=== PATIENT | female | born 1995 | race Caucasian/White ===

== ENCOUNTER 2016-11-07 15:09 | Emergency (ER) | payer MEDICAID, OTHER ==
[2016-11-07] MEDS ORDERED: predniSONE 20 MG TABLET PO STA (15:59)
[2016-11-07] MEDS ORDERED: predniSONE 20 MG TABLET ONE (16:02)
== END 2016-11-07 16:06 | disposition home or self-care (01) ==
DX: R07.89 Other chest pain (principal); J45.909 Unspecified asthma, uncomplicated
CPT/HCPCS: 99283; J7512

== ENCOUNTER 2017-12-19 10:29 | Emergency (ER) | payer MEDICAID ==
[2017-12-19 10:47] VITALS: BP 140/95
[2017-12-19 12:10] LABS: BILIRUBIN,URINE NEGATIVE (NEGATIVE); GLUCOSE, URINE (UA) NEGATIVE (NEGATIVE); KETONES,URINE (UA) NEGATIVE (NEGATIVE); LEUKOCYTE ESTERASE, URINE NEGATIVE (NEGATIVE); NITRITE,URINE POSITIVE (NEGATIVE); OCCULT BLOOD,URINE NEGATIVE (NEGATIVE); PH,URINE 5.5 PH (5.0-7.5); PROTEIN,URINE NEGATIVE (NEGATIVE); UROBILINOGEN,URINE 0.2 (NORMAL) E.U./dL (NORMAL)
[2017-12-19 12:13] LABS: CLARITY,URINE CLEAR (CLEAR); HCG UR QUAL POSITIVE
--- NOTE | 2017-12-19 12:26 | ED Physician Documentation ---
History of Present Illness - Stated complaint Stated Complaint: FEMALE /POSS. PREG - Chief complaint Chief Complaint: General - History obtained from History obtained from: Patient, Family - History of Present Illness Timing: Today - Additonal information Additional information: 22-year-old female has taken a test and is found that it is positive. She is here now wondering if she can get a blood test to confirm this.She is not having other symptoms except for tenderness to her nipples. She has a decreased appetite. She has a Review of Systems Constitutional: reports: Fatigue. denies: Fever, Chills, Myalgias Eyes: denies: Decreased vision Ears: denies: Ear pain Nose: denies: Congestion Throat: denies: Sore throat Cardiac: denies: Chest pain / pressure, Palpitations Respiratory: denies: Dyspnea, Cough GI: reports: Nausea. denies: Abdominal Pain, Vomiting : denies: Dysuria, Frequency PD PAST MEDICAL HISTORY - Past Medical History Respiratory: Asthma Psych: Depression, Anxiety - Past Surgical History Past Surgical History: Yes General: Appendectomy - Present Medications Home Medications: Ambulatory Orders Medication Instructions Recorded Confirmed Albuterol Sulfate [Proair Hfa 2 puffs INH Q4H PRN #1 inhaler 11/07/16 Inhaler] Control Pill 1 tab ORAL DAILY 11/07/16 11/07/16 cloNIDine HCl [Clonidine HCl] 0.2 tab ORAL DAILY PRN 11/07/16 11/07/16 predniSONE [Deltasone] 60 mg PO DAILY 4 Days tablet 11/07/16 - Allergies Allergies/Adverse Reactions: Allergies Allergy/AdvReac Type Severity Reaction Status Date / Time bacitracin AdvReac Unknown Rash Verified 11/07/16 15:16 [From Neosporin ([id number])] bacitracin zinc * AdvReac Unknown Rash Verified 11/07/16 15:16 [From Neosporin ([id number]-[id number]-[id number])] fluticasone propionate * AdvReac Unknown Respiratory Verified 11/07/16 15:16 [From Flovent Diskus] neomycin sulfate * AdvReac Unknown Rash Verified 11/07/16 15:16 [From Neosporin (jwy-wfi-nhquw)] polymyxin B AdvReac Unknown Rash Verified 11/07/16 15:16 [From Neosporin ([id number]-oer-[id number])] - Social History Does the pt smoke?: No Smoking Status: Never smoker Does the pt drink ETOH?: No Does the pt have substance abuse?: No - Immunizations Immunizations are current?: Yes - POLST Patient has POLST: No PD ED PE NORMAL - Vitals Vital signs reviewed: Yes (hypertensive ) - General General: Alert and oriented X 3, No acute distress, Well developed/nourished - HEENT HEENT: Atraumatic, PERRL, EOMI - Respiratory Respiratory: No respiratory distress - Derm Derm: Normal color, Warm and dry, No rash - Extremities Extremities: No deformity, No edema - Neuro Neuro: Alert and oriented X 3, tester equipment 2-12 intact, No motor deficit, No sensory deficit, Normal speech Eye Opening: Spontaneous Motor: Obeys Commands Verbal: Oriented GCS Score: 15 - Psych Psych: Normal mood, Normal affect Results - Vitals Vitals: Vital Signs - 24 hr 12/19/17 10:46 Temperature 36.9 C Heart Rate 92 Respiratory 16 Rate Blood Pressure 140/95 H O2 Saturation 98 Oxygen O2 Source Room air - Labs Labs: Laboratory Tests 12/19/17 12/19/17 10:58 10:58 HCG, Quant 130.25 Urine Color YELLOW Urine Clarity CLEAR Urine pH 5.5 Ur Specific [place] 1.025 Urine Protein NEGATIVE Urine Glucose (UA) NEGATIVE Urine Ketones NEGATIVE Urine Occult Blood NEGATIVE Urine Nitrite POSITIVE H Urine Bilirubin NEGATIVE Urine Urobilinogen 0.2 (NORMAL) Ur Leukocyte Esterase NEGATIVE Urine RBC 0-5 Urine WBC 0-3 Ur Squamous Epith Cells MOD Squamous H Urine Bacteria Many H Urine Mucus Few Strands Ur Microscopic Review INDICATED Urine Culture Comments NOT INDICATED Urine HCG, Qual POSITIVE PD MEDICAL DECISION MAKING - ED course Complexity details: reviewed results, re-evaluated patient, considered differential, d/w patient, d/w family ED course: 22-year-old female with early signs and symptoms is . Departure - Departure Disposition: 01 Home, Self Care Clinical Impression: Qualifiers: Weeks of gestation: less than 8 weeks Qualified Code(s): Z3A.01 - Less than 8 weeks gestation of Condition: Stable Instructions: ED Care, ED Preg Established Normal Sxs Follow-Up: Mariposa Youngblood ARNP [Primary Care Provider] - Comments: Today it appears there is evidence of early . The medications you are taking the sertraline does not cause defects but could cause some problems later in talk to your OB doctor about discontinuation of this medicine later in her . The clonidine may be more of a problem as this a schedule C medication. Discontinue taking this medication. Discharge Date/Time: 12/19/17 12:36
[2017-12-19 12:32] LABS: BACTERIA,URINE Many /HPF (None Seen); MUCUS,URINE Few Strands; RBC,URINE 0-5 /HPF (0-5); SQUAMOUS EPITHELIAL CELL,UR MOD Squamous (<= Few)
== END 2017-12-19 12:36 | disposition home or self-care (01) ==
LOC: ED 10:29
DX: Z32.01 Encounter for pregnancy test, result positive (principal); Z3A.01 Less than 8 weeks gestation of pregnancy; Z79.899 Other long term (current) drug therapy
CPT/HCPCS: 36415; 81001; 81003; 81025; 84702; 87086; 99283

== ENCOUNTER 2018-01-09 19:16 | Emergency (ER) | payer MEDICAID ==
[2018-01-09] MEDS ORDERED: AZITHROMYCIN 250 MG TABLET PO STA (22:20)
[2018-01-09] MEDS ORDERED: DEXAMETHASONE 10 MG/ML VIAL PO STA (22:20)
--- NOTE | 2018-01-09 22:23 | ED Physician Documentation ---
PD HPI URI - Stated complaint Stated Complaint: COUGH/COLD - Chief complaint Chief Complaint: Heent - History obtained from History obtained from: Patient, Family - History of Present Illness Timing - onset: How many days ago (3) Timing duration: Days (3) Timing details: Gradual onset, Still present Associated symptoms: Ear pain, Nasal congestion, Rhinorrhea, Sore throat, Dry cough. No: Fever Improves by: Rest Worsened by: Activity Similar symptoms before: Diagnosis (OM and bronchitis) Recently seen: Emergency Dept (seen last month for new onset ) - Additional information Additional information: 22-year-old female who is about 7 weeks has developed a cough and congestion. She is having coughing paroxysms and she has had to use her inhaler. She is developed now a bit of a sore throat on the left side and pain in her left ear.She has an appointment to see her first OB visit in 2 weeks. Review of Systems Constitutional: denies: Fever Eyes: denies: Decreased vision Ears: reports: Ear pain Nose: reports: Rhinorrhea / runny nose, Congestion Throat: reports: Sore throat Cardiac: denies: Chest pain / pressure, Palpitations Respiratory: reports: Dyspnea, Cough GI: denies: Nausea, Vomiting : reports: Frequency. denies: Dysuria Skin: denies: Rash Musculoskeletal: denies: Neck pain, Back pain, Extremity pain Neurologic: denies: Generalized weakness, Focal weakness, Numbness PD PAST MEDICAL HISTORY - Past Medical History Past Medical History: Yes Respiratory: Asthma Psych: Depression, Anxiety - Past Surgical History Past Surgical History: Yes General: Appendectomy - Present Medications Home Medications: Ambulatory Orders Medication Instructions Recorded Confirmed Azithromycin [Zithromax] 250 mg PO DAILY #4 tablet 01/09/18 Levothyroxine [Synthroid] 88 mcg PO QDAC 01/09/18 - Allergies Allergies/Adverse Reactions: Allergies Allergy/AdvReac Type Severity Reaction Status Date / Time bacitracin AdvReac Unknown Rash Verified 01/09/18 19:23 [From Neosporin (afc-hep-etysz)] bacitracin zinc * AdvReac Unknown Rash Verified 01/09/18 19:23 [From Neosporin (keh-dfw-xdmie)] fluticasone propionate * AdvReac Unknown Respiratory Verified 01/09/18 19:23 [From Flovent Diskus] neomycin sulfate * AdvReac Unknown Rash Verified 01/09/18 19:23 [From Neosporin (jmn-cdd-zzhyr)] polymyxin B AdvReac Unknown Rash Verified 01/09/18 19:23 [From Neosporin (ugu-ikr-[id number])] - Social History Does the pt smoke?: No Smoking Status: Never smoker Does the pt drink ETOH?: No Does the pt have substance abuse?: No - Immunizations Immunizations are current?: Yes - POLST Patient has POLST: No PD ED PE NORMAL - Vitals Vital signs reviewed: Yes (Normal) - General General: Alert and oriented X 3, No acute distress, Well developed/nourished - HEENT HEENT: Atraumatic, PERRL, EOMI, Other (There is inflammation to the left TM with some distortion of landmarks the right is clear) - Neck Neck: Supple, no meningeal sign, No bony TTP - Cardiac Cardiac: RRR, No murmur - Respiratory Respiratory: No respiratory distress, Clear bilaterally - Abdomen Abdomen: Soft, Non tender - Back Back: No CVA TTP, No spinal TTP - Derm Derm: Normal color, Warm and dry, No rash - Extremities Extremities: No deformity, No edema - Neuro Neuro: No motor deficit, No sensory deficit Eye Opening: Spontaneous Motor: Obeys Commands Verbal: Oriented GCS Score: 15 - Psych Psych: Normal mood, Normal affect Results - Vitals Vitals: Vital Signs - 24 hr 01/09/18 01/09/18 19:22 21:11 Temperature 36.6 C 36.4 C L Heart Rate 98 Respiratory 16 Rate Blood Pressure 120/80 O2 Saturation 100 Oxygen O2 Source Room air Procedures - Bedside sono Bedside sono by EMP: With use of bedside ultrasound the pelvis is imaged and there is a poor acoustic window but a gestational sac measuring 7 weeks 6 days is present and further imaging is not indicated today. PD MEDICAL DECISION MAKING - ED course Complexity details: considered differential, d/w patient, d/w family ED course: 22-year-old female 7 1/2 weeks has left otitis and she is having coughing paroxysms. She is treated in the emergency department with dexamethasone and azithromycin. She will follow-up with her DIRECTOR PRIVATE in 2 weeks. Departure - Departure Disposition: 01 Home, Self Care Clinical Impression: Otitis media Qualifiers: Otitis media type: suppurative Chronicity: acute Laterality: left Recurrence: not specified as recurrent Spontaneous tympanic membrane rupture: without spontaneous rupture Qualified Code(s): H66.002 - Acute suppurative otitis media without spontaneous rupture of ear drum, left ear Condition: Stable Instructions: ED Otitis Media Acute Adult Follow-Up: Your, doctor [Other] Prescriptions: Azithromycin [Zithromax] 250 mg PO DAILY #4 tablet
[2018-01-09] MEDS ORDERED: CHERRY SYRUP 10 ML UDC PO ONE (22:37)
[2018-01-09 22:45] VITALS: BP 131/91
== END 2018-01-09 22:43 | disposition home or self-care (01) ==
LOC: ED 19:16
DX: O26.891 Other specified pregnancy related conditions, first trimester (principal); Z3A.01 Less than 8 weeks gestation of pregnancy; H66.002 Acute suppurative otitis media without spontaneous rupture of ear drum, left ear; R05 Cough
CPT/HCPCS: 99283; A9270

== ENCOUNTER 2018-01-24 16:22 | Emergency (ER) | payer MEDICAID ==
[2018-01-24 17:26] LABS: BASOPHILS # (AUTO) 0.1 10^3/uL (0.0-0.1); BASOPHILS % (AUTO) 0.6 %; EOSINOPHILS # (AUTO) 0.1 10^3/uL (0.0-0.7); EOSINOPHILS % (AUTO) 1.2 %; HGB - HEMOGLOBIN 11.9 g/dL (12.0-16.0); LYMPHOCYTES % (AUTO) 22.5 %; MEAN CORPUSCULAR HEMOGLOBIN 25.8 pg (27.0-31.0); MEAN CORPUSCULAR HGB CONC 32.6 g/dL (32.0-36.0); MEAN CORPUSCULAR VOLUME 79.2 fL (81.0-99.0); MEAN PLATELET VOLUME 6.6 fL (7.9-10.8); MONOCYTES # (AUTO) 0.6 10^3/uL (0.0-1.0); NEUTROPHILS # (AUTO) 6.2 10^3/uL (1.5-6.6); NEUTROPHILS % (AUTO) 68.7 %; PLT - PLATELET COUNT 310 10^3/uL (130-450); RED BLOOD COUNT 4.61 10^6/uL (4.20-5.40); RED CELL DISTRIBUTION WIDTH 14.3 % (12.0-15.0); WHITE BLOOD COUNT 9.1 x10^3/uL (4.8-10.8)
[2018-01-24 17:39] LABS: ALBUMIN 3.4 g/dL (3.2-5.5); ALBUMIN/GLOBULIN RATIO 0.9 (1.0-2.2); BILIRUBIN,TOTAL 0.6 mg/dL (0.2-1.0); CALCIUM 8.8 mg/dL (8.5-10.3); CREATININE 0.6 mg/dL (0.4-1.0); TOTAL PROTEIN 7.1 g/dL (6.7-8.2)
--- NOTE | 2018-01-24 17:47 | ED Physician Documentation ---
PD HPI FEMALE - Stated complaint Stated Complaint: 10 WKS/CRAMPS - Chief complaint Chief Complaint: General - History obtained from History obtained from: Patient - History of Present Illness Timing - onset: Today (about 10 am today, onset of some lower abd cramping with spotting of vaginal bleeding.) Timing - duration: Days (1) Timing - details: Gradual onset, Still present, Waxing and waning Associated symptoms: Pelvic pain, Vaginal bleeding. 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 denies: Vomiting, Diarrhea : denies: Dysuria, Frequency, Discharge Musculoskeletal: denies: Neck pain, Back pain PD PAST MEDICAL HISTORY - Past Medical History Respiratory: Asthma Psych: Depression, Anxiety - Past Surgical History Past Surgical History: Yes General: Appendectomy - Present Medications Home Medications: Ambulatory Orders Medication Instructions Recorded Confirmed Levothyroxine [Synthroid] 88 mcg PO QDAC 01/09/18 Ondansetron HCl [Zofran] 4 mg PO Q6H PRN #20 tablet 01/24/18 Pnv95/Ferrous Fumarate/FA 1 each PO DAILY 01/24/18 01/24/18 [ Tablet] - Allergies Allergies/Adverse Reactions: Allergies Allergy/AdvReac Type Severity Reaction Status Date / Time bacitracin AdvReac Unknown Rash Verified 01/24/18 16:44 [From Neosporin (yzw-has-dyqns)] bacitracin zinc * AdvReac Unknown Rash Verified 01/24/18 16:44 [From Neosporin (usd-tvz-zrsgm)] fluticasone propionate * AdvReac Unknown Respiratory Verified 01/24/18 16:44 [From Flovent Diskus] neomycin sulfate * AdvReac Unknown Rash Verified 01/24/18 16:44 [From Neosporin (maq-wzr-lnvaw)] polymyxin B AdvReac Unknown Rash Verified 01/24/18 16:44 [From Neosporin (goo-mew-kvqgw)] - Social History Does the pt smoke?: No Smoking Status: Never smoker Does the pt drink ETOH?: No Does the pt have substance abuse?: No - Immunizations Immunizations are current?: Yes - POLST Patient has POLST: No PD ED PE NORMAL - Vitals Vital signs reviewed: Yes - General General: Alert and oriented X 3, No acute distress, Well developed/nourished - Neck Neck: Supple, no meningeal sign, No adenopathy - Cardiac Cardiac: RRR, No murmur - Respiratory Respiratory: Clear bilaterally - Abdomen Abdomen: Normal bowel sounds, Soft, Non distended, No organomegaly, Other (mild tender suprapubic without guarding. Bedside U/S, I could not get a good view, so will get formal U/S. ) Results - Vitals Vitals: Vital Signs - 24 hr 01/24/18 01/24/18 16:42 20:42 Temperature 36.8 C Heart Rate 90 96 Respiratory 18 18 Rate Blood Pressure 126/73 119/85 H O2 Saturation 99 99 Oxygen O2 Source Room air - Labs Labs: Laboratory Tests 01/24/18 01/24/18 01/24/18 17:18 17:18 17:18 WBC 9.1 RBC 4.61 Hgb 11.9 L Hct 36.5 L MCV 79.2 L MCH 25.8 L MCHC 32.6 RDW 14.3 Plt Count 310 MPV 6.6 L Neut # 6.2 Lymph # 2.0 [place] # 0.6 Eos # 0.1 Baso # 0.1 Absolute Nucleated RBC 0.01 Nucleated RBC % 0.1 Sodium 136 Potassium 3.8 Chloride 105 Carbon Dioxide 22 Anion Gap 9.0 BUN 9 Creatinine 0.6 Estimated GFR (MDRD) 123 Glucose 95 Calcium 8.8 Total Bilirubin 0.6 AST 16 ALT 15 Alkaline Phosphatase 51 Total Protein 7.1 Albumin 3.4 Globulin 3.7 Albumin/Globulin Ratio 0.9 L Lipase 21 L HCG, Quant 986676.00 Urine Color Urine Clarity Urine pH Ur Specific [place] Urine Protein Urine Glucose (UA) Urine Ketones Urine Occult Blood Urine Nitrite Urine Bilirubin Urine Urobilinogen Ur Leukocyte Esterase Ur Microscopic Review Urine Culture Comments 01/24/18 20:00 WBC RBC Hgb Hct MCV MCH MCHC RDW Plt Count MPV Neut # Lymph # [place] # Eos # Baso # Absolute Nucleated RBC Nucleated RBC % Sodium Potassium Chloride Carbon Dioxide Anion Gap BUN Creatinine Estimated GFR (MDRD) Glucose Calcium Total Bilirubin AST ALT Alkaline Phosphatase Total Protein Albumin Globulin Albumin/Globulin Ratio Lipase HCG, Quant Urine Color YELLOW Urine Clarity CLEAR Urine pH 5.5 Ur Specific [place] >=1.030 H Urine Protein NEGATIVE Urine Glucose (UA) NEGATIVE Urine Ketones NEGATIVE Urine Occult Blood NEGATIVE Urine Nitrite NEGATIVE Urine Bilirubin NEGATIVE Urine Urobilinogen 0.2 (NORMAL) Ur Leukocyte Esterase NEGATIVE Ur Microscopic Review NOT INDICATED Urine Culture Comments NOT INDICATED - Rads (name of study) first trimester OB US Radiology: Prelim report reviewed (IUP 9.0 size, with FHR 177.) PD MEDICAL DECISION MAKING - ED course Complexity details: reviewed results, considered differential, d/w patient Departure - Departure Disposition: 01 Home, Self Care Clinical Impression: Vaginal bleeding in Qualifiers: Weeks of gestation: 9 weeks Qualified Code(s): Z3A.09 - 9 weeks gestation of Condition: Stable Record reviewed to determine appropriate education?: Yes Instructions: Bleeding Early Preg Follow-Up: BELEN PINA [Primary Care Provider] - Jose De Jesus Chau MD [Provider Admit Priv/Credential] - Prescriptions: Ondansetron HCl [Zofran] 4 mg PO Q6H PRN #20 tablet PRN Reason: Nausea / Vomiting Comments: Your ultrasound shows a normal with good heart rate at this time. With vaginal bleeding and cramping there is always a concern for threatened miscarriage. Return if you have increased bleeding pain fever or other concerns. Most of the time episodes like this will stop within a day or 2 and things will be fine. Continue your vitamin B6. Add ondansetron if needed for nausea. Tylenol is fine throughout for pains. He can use ibuprofen at this point in up to about 30 weeks. 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 Return as needed. Discharge Date/Time: 01/24/18 20:42
[2018-01-24] MEDS ORDERED: ACETAMINOPHEN 325 MG TABLET PO STA (18:16)
[2018-01-24] MEDS ORDERED: ONDANSETRON ODT 4 MG TABLET TL STA (18:16)
[2018-01-24] MEDS ORDERED: IBUPROFEN 400 MG TABLET PO STA (18:16)
--- NOTE | 2018-01-24 20:13 | Ultrasound Preliminary Report ---
Exam: US OB FIRST TRIMESTER IMPRESSION: 1. Single viable intrauterine at EGA 9 weeks 0 days with CONNER 08/29/2018 based on crown-rump length. 2. Small perigestational fluid collection, nonhemorrhagic in appearance. 3. Unremarkable ovaries and adnexa for age and menstrual status. Complete anatomic survey recommended at 20 weeks. [facility] SITE ID: [id number]
--- NOTE | 2018-01-24 20:15 | Ultrasound Report ---
EXAM: FIRST TRIMESTER OBSTETRIC ULTRASOUND (Less than 11 weeks) EXAM DATE: 01/24/2018 06:52 PM. CLINICAL HISTORY: Lower abdominal cramping in a 22-year-old female with early , about 10 wee ks. LMP: Unknown. COMPARISONS: None. TECHNIQUE: Transabdominal ultrasound examination with static image documentation on an emergent basis . Patient declined transvaginal scanning. CLINICAL DATES: Indeterminate. ASSESSMENT: Gestational Sac: Single intrauterine. Well formed. Mean gestational sac diameter: 49.7 mm = 10 weeks 5 days. Embryo: CRL (crown-rump length) 24.9 mm = 9 weeks 0 days. Cardiac activity: 177 beats per minute. Yolk sac: 4.7 mm. Amniotic fluid: Not accurately assessed at this gestational age. Grossly unremarkable. Early placenta: Not visible at this gestational age. Other: Small perigestational fluid collection 14 x 4 x 3 mm. MATERNAL STRUCTURES: Uterus: Anteverted/Retroverted. Unremarkable. Cervix: Not well visualized due to lack of transvaginal scanning. Right Ovary/Adnexa: Unremarkable. The ovary measures 3.4 x 1.9 x 2.6 cm, volume 8.7 cc. Left Ovary/Adnexa: Unremarkable. The ovary measures 2.6 x 1.6 x 1.8 cm, volume 3.9 cc. Free Fluid: None. Other: None. IMPRESSION: 1. Single viable intrauterine at EGA 9 weeks 0 days with CONNER 08/29/2018 based on crown-rump length. 2. Small perigestational fluid collection, nonhemorrhagic in appearance. 3. Unremarkable ovaries and adnexa for age and menstrual status. Complete anatomic survey recommended at 20 weeks. [facility] Referring Provider Line: [phone] SITE ID: [id number]
[2018-01-24 20:16] LABS: BILIRUBIN,URINE NEGATIVE (NEGATIVE); GLUCOSE, URINE (UA) NEGATIVE (NEGATIVE); KETONES,URINE (UA) NEGATIVE (NEGATIVE); LEUKOCYTE ESTERASE, URINE NEGATIVE (NEGATIVE); NITRITE,URINE NEGATIVE (NEGATIVE); OCCULT BLOOD,URINE NEGATIVE (NEGATIVE); PH,URINE 5.5 PH (5.0-7.5); PROTEIN,URINE NEGATIVE (NEGATIVE); UROBILINOGEN,URINE 0.2 (NORMAL) E.U./dL (NORMAL)
[2018-01-24 20:20] LABS: CLARITY,URINE CLEAR (CLEAR)
[2018-01-24 20:43] VITALS: BP 119/85
== END 2018-01-24 20:42 | disposition home or self-care (01) ==
LOC: ED 16:22
DX: O46.91 Antepartum hemorrhage, unspecified, first trimester (principal); Z3A.09 9 weeks gestation of pregnancy
CPT/HCPCS: 36415; 76801; 80053; 81001; 81003; 83690; 84702; 85025; 87086; 99283

== ENCOUNTER 2019-12-31 20:01 | Emergency (ER) | payer MEDICAID ==
[2019-12-31 20:15] VITALS: BP 151/88
--- NOTE | 2019-12-31 21:07 | ED Physician Documentation ---
PD HPI LOWER EXT INJURY - Stated complaint Stated Complaint: R TOE INJ - Chief complaint Chief Complaint: Trauma Ext - History obtained from History obtained from: Patient - History of Present Illness PD HPI LOW EXT INJURY LOCATION: Left, Toe - Additional information Additional information: Patient comes emergency department complaining ofRight small toe pain after walking and hitting her toe on the foot of the bed. Patient states that she was not injured in any other way. She states this happened around 1400 today. She has been able to walk on it, but it hurts. She denies any prior injury to the toe. No other complaints at this time. Patient does note that she felt a "pop" when the incident occurred. Review of Systems Ten Systems: 10 systems reviewed and negative Constitutional: reports: Reviewed and negative Eyes: reports: Reviewed and negative Ears: reports: Reviewed and negative Nose: reports: Reviewed and negative Throat: reports: Reviewed and negative Cardiac: reports: Reviewed and negative Respiratory: reports: Reviewed and negative GI: reports: Reviewed and negative : reports: Reviewed and negative Skin: reports: Reviewed and negative Musculoskeletal: reports: Extremity pain (Right small toe) Neurologic: reports: Reviewed and negative Psychiatric: reports: Reviewed and negative Endocrine: reports: Reviewed and negative Immunocompromised: reports: Reviewed and negative PD PAST MEDICAL HISTORY - Past Medical History Respiratory: Asthma Psych: Depression, Anxiety - Past Surgical History Past Surgical History: Yes General: Appendectomy - Present Medications Home Medications: Ambulatory Orders Medication Instructions Recorded Confirmed Levothyroxine [Synthroid] 88 mcg PO QDAC 01/09/18 Ondansetron HCl [Zofran] 4 mg PO Q6H PRN #20 tablet 01/24/18 Pnv No.95/Ferrous Fum/Folic AC 1 each PO DAILY 01/24/18 01/24/18 [ Tablet] - Allergies Allergies/Adverse Reactions: Allergies Allergy/AdvReac Type Severity Reaction Status Date / Time bacitracin AdvReac Unknown Rash Verified 12/31/19 20:12 [From Neosporin (yja-wre-pewof)] bacitracin zinc * AdvReac Unknown Rash Verified 12/31/19 20:12 [From Neosporin (jxb-qaj-oujhy)] fluticasone propionate * AdvReac Unknown Respiratory Verified 12/31/19 20:12 [From Flovent Diskus] neomycin sulfate * AdvReac Unknown Rash Verified 12/31/19 20:12 [From Neosporin (clo-udb-onsdj)] polymyxin B AdvReac Unknown Rash Verified 12/31/19 20:12 [From Neosporin (tny-qtz-tdymk)] - Social History Does the pt smoke?: No Smoking Status: Never smoker Does the pt drink ETOH?: No Does the pt have substance abuse?: No - Immunizations Immunizations are current?: Yes - POLST Patient has POLST: No PD ED PE NORMAL - Vitals Vital signs reviewed: Yes - General General: Alert and oriented X 3, No acute distress - HEENT HEENT: Atraumatic, PERRL - Neck Neck: Supple, no meningeal sign - Cardiac Cardiac: Strong equal pulses - Respiratory Respiratory: No respiratory distress - Derm Derm: Normal color, Warm and dry, No rash - Extremities Extremities: No deformity, Other (Right small toe is edematous, contused, and tender.Patient does have full range of motion of the toe.) - Neuro Neuro: Alert and oriented X 3 - Psych Psych: Normal mood, Normal affect Results - Vitals Vitals: Vital Signs - 24 hr 12/31/19 20:13 Temperature 36.5 C Heart Rate 88 Respiratory 16 Rate Blood Pressure 151/88 H O2 Saturation 98 Oxygen O2 Source Room air - Rads (name of study) Toe x-ray series Radiology: Final report received, EMP read indepedently (Final radiologist impression: Normal toe radiography), See rad report PD MEDICAL DECISION MAKING - ED course Complexity details: reviewed results, re-evaluated patient, considered differential, d/w patient ED course: Patient was worked up with x-rays of the toe, which were found to be negative. Departure - Departure Disposition: 01 Home, Self Care Clinical Impression: Sprain of toe, fifth, right Condition: Good Instructions: ED Sprain Toe Comments: Your toe x-ray does not show any broken bones. You have most likely sprained your toe, which can cause pain, swelling, and bruising. This will get better on its own without any further intervention. You may bear weight and walk, and as tolerated. You may take ibuprofen and Tylenol as needed for the discomfort. Apply ice and elevate your foot to help with the swelling. Discharge Date/Time: 12/31/19 21:55
--- NOTE | 2019-12-31 21:33 | XRAY Report ---
Reason: trauma/pain/swelling Procedure Date: 12/31/2019 Accession Number: [id number] / [id number] Procedure: XR - Toe(s) RT CPT Code: Final Report FULL RESULT: EXAM: RIGHT TOE RADIOGRAPHY EXAM DATE: 12/31/2019 09:24 PM. CLINICAL HISTORY: Trauma/pain/swelling. COMPARISON: None. TECHNIQUE: 3 views. FINDINGS: Bones: Normal. No fracture or bone lesion. Joints: Normal. No subluxations. Soft Tissues: Normal. No soft tissue swelling. IMPRESSION: Normal toe radiography. [facility]
== END 2019-12-31 21:55 | disposition home or self-care (01) ==
LOC: ED 20:01
DX: S93.504A Unspecified sprain of right lesser toe(s), initial encounter (principal); S90.121A Contusion of right lesser toe(s) without damage to nail, initial encounter; W22.03XA Walked into furniture, initial encounter; Y93.E9 Activity, other interior property and clothing maintenance; Y92.003 Bedroom of unspecified non-institutional (private) residence as the place of occurrence of the external cause
CPT/HCPCS: 73660; 99282; 99283